=== PATIENT | female | born 1985 | race African-American/Black ===

== ENCOUNTER 2018-09-12 18:56 | Emergency (ER) | payer MEDICAID, OTHER ==
[~2018-09-12] VITALS: Ht 182.9 cm; Wt 88.5 kg
--- NOTE | 2018-09-12 19:15 | NUR ---
[facility]. [facility] PHONE [facility] TO FILE A POLICE REPORT.
[2018-09-12] MEDS ORDERED: DIAZEPAM 5 MG TABLET PO ONE (19:30)
[2018-09-12] MEDS ORDERED: KETOROLAC 30 MG/1 ML IM ONE (19:30)
[2018-09-12] MEDS ORDERED: KETOROLAC 30 MG/1 ML ONE (19:35)
[2018-09-12] MEDS ORDERED: DIAZEPAM 5 MG TABLET ONE (19:35)
--- NOTE | 2018-09-12 19:44 | NUR ---
PT. OUT OF ROOM FOR X-RAY; AWAITNG RETURN TO MEDICATE PT.
--- NOTE | 2018-09-12 20:26 | NUR ---
RAMIROD AT FOR REPORT.
[2018-09-12 21:03] VITALS: BP 140/100
== END 2018-09-12 21:04 | disposition home or self-care (01) ==
LOC: ED 20:58
DX: S39.012A Strain of muscle, fascia and tendon of lower back, initial encounter (principal); S29.012A Strain of muscle and tendon of back wall of thorax, initial encounter; S83.91XA Sprain of unspecified site of right knee, initial encounter; G89.11 Acute pain due to trauma; V09.09XA Pedestrian injured in nontraffic accident involving other motor vehicles, initial encounter; Y93.89 Activity, other specified; Y92.89 Other specified places as the place of occurrence of the external cause; Y99.8 Other external cause status
CPT/HCPCS: 72072; 72110; 73564; 96372; 99283; J1885